=== PATIENT | female | born 1940 | race Caucasian/White ===

== ENCOUNTER 2016-05-24 10:58 | Observation (INO) | payer MEDICARE ==
--- NOTE | ~2016-05-24 | HP ---
History And Physical [place] [id number] [facility]. [address] NAME: JOSELIN ROMANO : 44 STATUS : ADM Margo PAT#: [id number] AGE: 76 ADM/REG DATE : 05/24/16 MR#: [id number] REPORT SERV DATE: 05/25/16 DICTATED BY: KARI MCKEON DATE: 05/25/16 REPORT STATUS : Draft TRANSCRIBED BY: MANUEL DATE: 05/25/16 DATE OF ADMISSION: 05/24/2016 MAIL ROOM CLERK: Bill Rangel M.D. CHIEF COMPLAINT: Elevated blood pressure with headache and previous chest pain event. HISTORY OF PRESENT ILLNESS: A very pleasant, 76-year-old, white female with no known history of CAD, states that over the last several days her blood pressure has run consistently at 170/90. While at [facility] yesterday, her blood pressure was 180/90 with a reported headache and some mild shortness of breath and lightheadedness. She denies any chest pain, pressure, or tightness with the event. She does report some episodes of belching. Denies any nausea or diaphoresis. Of note, she does report in 04/2016 on returning home from a trip to [place] while unpacking their motor home she experienced an episode of chest pain, rated it 10/10, it lasted approximately an hour in duration. She was given aspirin 81 mg, Tums with some improvement in her symptoms. She did not seek any evaluation or treatment for that event, but was referred to Dr. Rangel as a new patient with plans for echo and stress test which will be done this week. The patient denies any personal history of myocardial infarction, stroke, DVT, or pulmonary embolus. The patient denies any recent fever or chills. No palpitations. No syncopal episodes. Denies PND or orthopnea. PAST MEDICAL HISTORY: 1. Dyslipidemia. 2. GERD. 3. 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 4. Positive family history for early CAD. PAST SURGICAL HISTORY: 1. Cholecystectomy. 2. Hysterectomy with incidental appendectomy. SOCIAL HISTORY: She is with three children. 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 Does not have an exercise routine. Denies tobacco, alcohol, or illicit's. FAMILY HISTORY: Mother with a heart attack in her 50s, at 85. Father with a heart attack and pacemaker in his 60s, at 80. REVIEW OF SYSTEMS: A 14-point review of systems performed, significant for HPI including home blood pressures recently of 170/90, otherwise, complete review of systems obtained and negative. ALLERGIES: PENICILLIN, RASH. VALIUM, RESPIRATORY DISTRESS. CODEINE, NAUSEA AND VOMITING. HOME MEDICATIONS: Aspirin 81 mg daily, Tums p.r.n., Prevacid 30 mg daily, multivitamin History And Physical [address] [address] NAME: JOSELIN ROMANO : 44 STATUS : ADM Margo PAT#: [id number] AGE: 76 ADM/REG DATE : 05/24/16 MR#: [id number] REPORT SERV DATE: 05/25/16 DICTATED BY: KARI MCKEON DATE: 05/25/16 REPORT STATUS : Draft TRANSCRIBED BY: MANUEL DATE: 05/25/16 daily, Crestor 10 mg, omega-3 daily, vitamin D3 daily. PHYSICAL EXAMINATION: VITAL SIGNS: Bilateral blood pressures on arrival, right 190/85, left 157/66, this morning 138/65, pulse 53, respirations 20, temperature 98.0, O2 saturation 97% on room air, height 5 feet 3 inches, weight 156 pounds, BMI 28. GENERAL: Cooperative, in no apparent distress. HEENT: Pupils 2 mm, sclera nonicteric. Nares patent. Moist mucous membranes. No xanthelasma. NECK: Trachea midline, no thyromegaly. No JVD. No bruits. LYMPH: No cervical lymphadenopathy. No supraclavicular lymphadenopathy. RESPIRATORY: Unlabored respirations. Breath sounds clear bilaterally to posterior auscultation. No wheezes or rhonchi. CARDIOVASCULAR: Regular rate. No murmur, rub or gallop appreciated. Extremities without edema. Pulses 2+ bilaterally. ABDOMEN: Soft, nontender, nondistended, normal bowel sounds auscultated throughout. No organomegaly. SKIN: Warm, dry extremities. No pallor, or cyanosis. PSYCHIATRIC: Appropriate affect. Alert, oriented x3. LABORATORY DATA: Troponin less than 0.02 twice. Potassium 4.3, BUN 14, creatinine 0.79, glucose 73, magnesium 2.1. WBC 3.8, hemoglobin 13.7, hematocrit 38.9, platelet count 156,000. D-dimer less than 0.27. EKG, sinus bradycardia. MPI 10/2003: No ischemia (at [facility]). ASSESSMENT AND PLAN: 1. History of episode of chest pain, 04/2016. The patient has been observed in the CPOU overnight to rule out myocardial infarction with two sets of troponin negative, EKG stable. We will schedule echo and MPI today with close cardiology and PCP followup. If anything suggestive of ischemia, Cardiology referral will be initiated. Otherwise, the patient will be asked to follow up with her PCP and Dr. Rangel as appropriate. 2. Elevated blood pressure. Monitor blood pressure. Add amlodipine at discharge with instruction to keep diary for followup office visit. 3. Dyslipidemia. Continue statin. JUSTICE/MANUEL Kari Mckeon MSN, INVERTED BLOCK OPERATOR-BC / [id number] CC: Kari Mckeon, MSN, INVERTED BLOCK OPERATOR-BC History And Physical [address] [address] NAME: JOSELIN ROMANO : 44 STATUS : ADM Margo PAT#: [id number] AGE: 76 ADM/REG DATE : 05/24/16 MR#: [id number] REPORT SERV DATE: 05/25/16 DICTATED BY: KARI MCKEON DATE: 05/25/16 REPORT STATUS : Draft TRANSCRIBED BY: MODL DATE: 05/25/16 Popeye Mabry M.D.
[~2016-05-24 10:58] MED LIST: *DENIES
[2016-05-24] MEDS ORDERED: CRESTOR20 MG PO (11:32)
[2016-05-24] MEDS ORDERED: OMEGA-3 OTC PO (11:33)
[2016-05-24] MEDS ORDERED: MULTIVIT/MIN PO (11:33)
[2016-05-24] MEDS ORDERED: HALF81 PO (11:33)
[2016-05-24] MEDS ORDERED: VITAMIN D31000 UNIT PO (11:33)
[2016-05-24] MEDS ORDERED: PREV30 PO (11:34)
[2016-05-24] MEDS ORDERED: TUMS E-X750 M2 PO (11:34)
[2016-05-24 12:17] LABS: BASOPHILS 0.3 %; BASOPHILS ABSOLUTE 0.01 10/3/uL (0.0-0.16); EOSINOPHILS 2.9 %; EOSINOPHILS ABSOLUTE 0.11 10/3/uL (0.0-0.53); ER CBC TAT 0 Hrs 03 Mins; HEMATOCRIT 38.9 % (36.0-48.0); HEMOGLOBIN 13.7 g/dL (12.0-16.0); IMMATURE GRANULOCYTES 0.3 %; IMMATURE GRANULOCYTES ABSOLUTE 0.01 10/3/uL (0.0-0.11); LYMPHOCYTES 21.1 %; MEAN CORPUS HGB CONC 35.2 g/dL (32.0-36.0); MEAN CORPUSCULAR HEMOGLOB 29.8 pg (26.0-34.0); MEAN CORPUSCULAR VOLUME 84.6 fL (80-100); MEAN PLATELET VOLUME 11.6 fL (9.2-13.0); MONOCYTES 8.7 %; MONOCYTES ABSOLUTE 0.33 10/3/uL (0.21-1.20); NEUTROPHILS 66.7 %; NEUTROPHILS ABSOLUTE 2.54 10/3/uL (2.02-8.40); PLATELET COUNT 156 10/3/uL (150-400); RBC DISTRIBUTION WIDTH 13.5 % (12.0-16.0); WHITE BLOOD CELLS 3.8 10/3/uL (4.5-10.5)
[2016-05-24 12:18] LABS: MANUAL DIFF NO %
[2016-05-24 12:25] LABS: PARTIAL THROMBO TIME 23.4 SEC (22.5-37.2); PROTIME (NOT ORD) 13.5 SEC (12.0-14.5)
[2016-05-24 12:36] LABS: BUN (BLOOD UREA NITROGEN) 14 MG/DL (6-23); CALCIUM, SERUM 9.2 MG/DL (8.5-10.4); CHEST PAIN PROFILE TAT 0 Hrs 22 Mins; CHLORIDE, SERUM 107 MMOL/L (96-112); CO2 (CARBON DIOXIDE) 30 MMOL/L (24-34); CREATININE 0.79 MG/DL (0.55-1.02); GFR AFRICAN AMERICAN 85 ML/MIN (>=60); GFR NON AFRICAN AMERICAN 74 ML/MIN (>=60); GLUCOSE, SERUM 73 MG/DL (60-99); POTASSIUM, SERUM 4.3 MMOL/L (3.5-5.3); SODIUM, SERUM 144 MMOL/L (135-148); TROPONIN I <0.02 NG/ML (<0.05)
[2016-05-25] MEDS ORDERED: NORV25 PO (17:54)
== END 2016-05-25 18:31 | disposition home or self-care (01) ==
LOC: ER 10:58 → CDU1 12:58
PROVIDERS: Hospitalist
DX: R07.2 Precordial pain (principal); R03.0 Elevated blood-pressure reading, without diagnosis of hypertension; E78.5 Hyperlipidemia, unspecified; K91.5 Postcholecystectomy syndrome; K21.9 Gastro-esophageal reflux disease without esophagitis; E55.9 Vitamin D deficiency, unspecified; Z90.49 Acquired absence of other specified parts of digestive tract; Z79.82 Long term (current) use of aspirin; Z79.899 Other long term (current) drug therapy; Z90.710 Acquired absence of both cervix and uterus; Z88.0 Allergy status to penicillin; Z88.5 Allergy status to narcotic agent
CPT/HCPCS: 71010; 78452; 80048; 82962; 83735; 84484; 85025; 85379; 85610; 85730; 93005; 93017; 93306; 96374; 99285; A9270-GY; A9502; G0378; J0360

== ENCOUNTER 2016-05-27 14:21 | Observation (INO) | payer MEDICARE ==
--- NOTE | ~2016-05-27 | HP ---
History And Physical [place] [id number] [facility] [place]. [address] NAME: JOSELIN ROMANO : 44 STATUS : ADM Margo PAT#: [id number] AGE: 76 ADM/REG DATE : 05/27/16 MR#: [id number] REPORT SERV DATE: 05/27/16 DICTATED BY: DATE: REPORT STATUS : Draft TRANSCRIBED BY: MODL DATE: 05/27/16 DATE OF ADMISSION: 05/27/2016 This is a very pleasant 76-year-old white female with no known history of coronary artery disease. She was at her PCP's office for right upper quadrant abdominal pain today. While she was there awaiting to see the PCP, she went to the restroom and developed some lightheadedness, nausea, became short of breath, and felt heart flutter. She denies a syncopal episode. She did not use the restroom at that time. She just sat down to feel better. Thirty minutes after that event, she was being assessed by her PCP and while lying flat, she had developed some flushing to her face. On sitting up afterwards, she developed some sharp chest pain on her left side radiating to her left arm, accompanied with shortness of breath. She was very flushed at that time, felt a lot of palpitations. During that event, she also experienced a headache and increased blood pressure. The reports the blood pressure of 184 over an unknown diastolic blood pressure. The patient reports that she has had palpitations for years. The sharp pain that the patient experienced lasted a few seconds and has not reoccurred since the event in the office. She is currently chest- pain-free. Denies any complaints. She was here 2 days ago on 05/25/2016, with a low-risk stress test and a TTE that showed an EF of 55% to 60%. The patient also denies any recent fevers, chills, syncopal episodes, PND, or orthopnea. PAST MEDICAL HISTORY: Includes 1. Dyslipidemia. 2. GERD. 3. 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 4. Positive family history for early coronary artery disease. 5. Palpitations. PAST SURGICAL HISTORY: 1. Cholecystectomy. 2. Hysterectomy with incidental appendectomy. SOCIAL HISTORY: She is , with three children. 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 She denies any tobacco use, alcohol, or illicits. She does not have an exercise routine. FAMILY HISTORY: Mother with a heart attack in her 50s, at the age of 85. Father with a heart attack and a pacemaker in his 60s, at 80. REVIEW OF SYSTEMS: A 14-point review of systems was performed, significant for HPI including home blood pressure of 184 over unknown diastolic blood pressure. Otherwise complete review of systems obtained and negative. ALLERGIES: PENICILLIN CAUSING A RASH. VALIUM CAUSING RESPIRATORY DISTRESS. CODEINE CAUSING NAUSEA AND VOMITING. History And Physical [address] [address] NAME: JOSELIN ROMANO : 44 STATUS : ADM Margo PAT#: [id number] AGE: 76 ADM/REG DATE : 05/27/16 MR#: [id number] REPORT SERV DATE: 05/27/16 DICTATED BY: DATE: REPORT STATUS : Draft TRANSCRIBED BY: MODL DATE: 05/27/16 HOME MEDICATIONS: Include 1. Amlodipine 2.5 p.o. daily. 2. Aspirin 81 p.o. at bedtime. 3. Calcium carbonate 1500 tab p.o. daily. 4. Vitamin D3 of 2000 units p.o. every morning. 5. Prevacid 30 mg p.o. daily. 6. Multivitamin 1 tab p.o. daily. 7. Crestor 20 p.o. at bedtime. 8. [place]-3 [id number] 1 capsule p.o. daily. PHYSICAL EXAMINATION: VITAL SIGNS: Blood pressure 141/54, pulse 88, respirations 18, temperature 97.9, O2 saturation 98%, on room air, height 5 feet 3 inches, weight 155 pounds, BMI 27.5. GENERAL: Cooperative, in no apparent distress. HEENT: Sclerae nonicteric. Nares patent. Pupils 2 mm. Moist mucous membranes. No xanthelasma. NECK: Trachea is midline. No thyromegaly. No JVD. No bruits. LYMPH: No cervical lymphadenopathy. No supraclavicular lymphadenopathy. RESPIRATIONS: Unlabored respirations. Breath sounds clear bilaterally to posterior auscultation. No wheezes or rhonchi or crackles. CARDIOVASCULAR: Regular rate. No murmur, rub, or gallop appreciated. EXTREMITIES: Without edema. Pulses 2+ bilaterally. ABDOMEN: Soft, nontender, nondistended, normal bowel sounds auscultated throughout. No organomegaly. SKIN: Warm, dry extremities. No pallor, or cyanosis. PSYCHIATRIC: Appropriate affect. Alert and oriented x3. LABORATORY DATA: Troponin less than 0.02. Sodium 144, potassium 3.8, BUN 12, creatinine 0.76, GFR 90, glucose 88, and magnesium 2.0. White blood cells 4.2, hemoglobin 13.7, hematocrit 38.8, and platelets 177. INR 1.0. TTE dated 05/25/2016, showed a normal left ventricular systolic function with a calculated ejection fraction of 55% to 60%. Mild mitral regurgitation. Nuclear myocardial imaging dated 05/25/2016, showed Srikanth stage II, achieved 96% MPHR at 7 METS. No chest pain, but left-sided neck pain during exercise. No EKG changes of ischemia. Imaging demonstrated no ischemia as above. Post exercise left ventricular ejection fraction greater than 60%. Overall, low-risk stress test. In the future, consider PET stress due to large breast attenuation artifact. ASSESSMENT AND PLAN: 1. Chest pain. Currently the patient denies chest pain. Troponin is negative at 0.02. Stress test on 05/25/2016, showed low-risk no ischemia. TTE on 05/25/2016, showed an EF of 55% to 60% with mild MR. The patient's symptoms and history were discussed with Dr. Duncan. Plan for a test plus/minus PCI tomorrow due to recurrent chest pain with the negative stress test. We may do a tentative evaluation of coronary anatomy if best. The patient will follow up with Dr. Rangel and Dr. Son post discharge. The History And Physical [address] [address] NAME: JOSELIN ROMANO : 44 STATUS : ADM Margo PAT#: [id number] AGE: 76 ADM/REG DATE : 05/27/16 MR#: [id number] REPORT SERV DATE: 05/27/16 DICTATED BY: DATE: REPORT STATUS : Draft TRANSCRIBED BY: MODL DATE: 05/27/16 patient will be observed in the CPOU overnight. 2. Palpitations. We will continue to monitor the patient on the telemetry for any arrhythmia. The patient is currently in sinus rhythm. Recommend a Holter monitor outpatient per PCP. 3. Hypertension. The patient is currently stable at 141/54. Home medications addressed. We will also start Coreg 3.125 p.o. twice a day. 4. Hyperlipidemia. Continue statin. 5. Headache, currently resolved. EKS/MODL Toi Ayala APN / [id number] CC: Kari Dyer, MSN, LEAD NETWORK ARCHITECT-BC Sunny Son M.D. Bill Rangel M.D.
[2016-05-27 13:22] LABS: BASOPHILS 0.7 %; BASOPHILS ABSOLUTE 0.03 10/3/uL (0.0-0.16); EOSINOPHILS 2.6 %; EOSINOPHILS ABSOLUTE 0.11 10/3/uL (0.0-0.53); ER CBC TAT 0 Hrs 08 Mins; HEMATOCRIT 38.8 % (36.0-48.0); HEMOGLOBIN 13.7 g/dL (12.0-16.0); IMMATURE GRANULOCYTES 0.2 %; IMMATURE GRANULOCYTES ABSOLUTE 0.01 10/3/uL (0.0-0.11); LYMPHOCYTES 27.1 %; LYMPHOCYTES ABSOLUTE 1.13 10/3/uL (0.67-4.30); MEAN CORPUS HGB CONC 35.3 g/dL (32.0-36.0); MEAN CORPUSCULAR HEMOGLOB 29.8 pg (26.0-34.0); MEAN CORPUSCULAR VOLUME 84.3 fL (80-100); MEAN PLATELET VOLUME 11.5 fL (9.2-13.0); MONOCYTES 7.4 %; MONOCYTES ABSOLUTE 0.31 10/3/uL (0.21-1.20); NEUTROPHILS ABSOLUTE 2.58 10/3/uL (2.02-8.40); PLATELET COUNT 177 10/3/uL (150-400); RBC DISTRIBUTION WIDTH 13.6 % (12.0-16.0); WHITE BLOOD CELLS 4.2 10/3/uL (4.5-10.5)
[2016-05-27 13:23] LABS: MANUAL DIFF NO %
[2016-05-27 13:31] LABS: PARTIAL THROMBO TIME 26.3 SEC (22.5-37.2); PROTIME (NOT ORD) 13.4 SEC (12.0-14.5)
[2016-05-27 13:39] LABS: BUN (BLOOD UREA NITROGEN) 12 MG/DL (6-23); CALCIUM, SERUM 9.8 MG/DL (8.5-10.4); CHEST PAIN PROFILE TAT 0 Hrs 25 Mins; CHLORIDE, SERUM 107 MMOL/L (96-112); CREATININE 0.76 MG/DL (0.55-1.02); GFR AFRICAN AMERICAN 90 ML/MIN (>=60); GFR NON AFRICAN AMERICAN 77 ML/MIN (>=60); POTASSIUM, SERUM 3.8 MMOL/L (3.5-5.3); SODIUM, SERUM 144 MMOL/L (135-148); TROPONIN I <0.02 NG/ML (<0.05)
[2016-05-27 13:40] LABS: CO2 (CARBON DIOXIDE) 25 MMOL/L (24-34); GLUCOSE, SERUM 88 MG/DL (60-99)
[~2016-05-27 14:21] MED LIST changes: +CRESTOR20 MG PO; +HALF81 PO; +MULTIVIT/MIN PO; +NORV25 PO; +OMEGA-3 OTC PO; +PREV30 PO; +TUMS E-X750 M2 PO; +VITAMIN D31000 UNIT PO
[2016-05-27 20:22] LABS: FREE T4 0.99 NG/DL (0.76-1.46); TROPONIN I <0.02 NG/ML (<0.05)
[2016-05-28 05:19] LABS: BASOPHILS 0.4 %; BASOPHILS ABSOLUTE 0.02 10/3/uL (0.0-0.16); EOSINOPHILS 3.8 %; EOSINOPHILS ABSOLUTE 0.17 10/3/uL (0.0-0.53); HEMATOCRIT 39.8 % (36.0-48.0); HEMOGLOBIN 13.9 g/dL (12.0-16.0); IMMATURE GRANULOCYTES 0.2 %; IMMATURE GRANULOCYTES ABSOLUTE 0.01 10/3/uL (0.0-0.11); LYMPHOCYTES 24.4 %; MEAN CORPUS HGB CONC 34.9 g/dL (32.0-36.0); MEAN CORPUSCULAR VOLUME 85.8 fL (80-100); MEAN PLATELET VOLUME 11.4 fL (9.2-13.0); MONOCYTES 7.8 %; MONOCYTES ABSOLUTE 0.35 10/3/uL (0.21-1.20); NEUTROPHILS 63.4 %; NEUTROPHILS ABSOLUTE 2.86 10/3/uL (2.02-8.40); PLATELET COUNT 175 10/3/uL (150-400); RBC DISTRIBUTION WIDTH 13.5 % (12.0-16.0); RED CELL COUNT 4.64 10/6/uL (4.0-5.6); WHITE BLOOD CELLS 4.5 10/3/uL (4.5-10.5)
[2016-05-28 05:20] LABS: MANUAL DIFF NO %
[2016-05-28 05:28] LABS: BUN (BLOOD UREA NITROGEN) 13 MG/DL (6-23); CALCIUM, SERUM 8.9 MG/DL (8.5-10.4); CHLORIDE, SERUM 105 MMOL/L (96-112); CO2 (CARBON DIOXIDE) 25 MMOL/L (24-34); CREATININE 0.76 MG/DL (0.55-1.02); GFR AFRICAN AMERICAN 90 ML/MIN (>=60); GFR NON AFRICAN AMERICAN 77 ML/MIN (>=60); GLUCOSE, SERUM 85 MG/DL (60-99); HDL CHOLESTEROL 37 MG/DL (> 49); POTASSIUM, SERUM 3.6 MMOL/L (3.5-5.3); SODIUM, SERUM 142 MMOL/L (135-148)
[2016-05-28 05:30] LABS: CHOL/HDL RATIO(NOT ORDER) 3.5 (0-5); CHOLESTEROL 130 MG/DL (< 200); LDL CHOLESTEROL 45 MG/DL (< 130); NON-HDL CHOLESTEROL 93 MG/DL (< 160); TRIGLYCERIDE 242 MG/DL (< 150)
[2016-05-28] MEDS ORDERED: COREG3 PO (16:40)
== END 2016-05-28 18:08 | disposition home or self-care (01) ==
LOC: ER 14:21 → CDU1 15:04
PROVIDERS: Clinical Nurse Specialist; Internal Medicine; Nurse Practitioner
DX: I25.110 Atherosclerotic heart disease of native coronary artery with unstable angina pectoris (principal); K91.5 Postcholecystectomy syndrome; I10 Essential (primary) hypertension; E55.9 Vitamin D deficiency, unspecified; E78.5 Hyperlipidemia, unspecified; K21.9 Gastro-esophageal reflux disease without esophagitis; Z90.49 Acquired absence of other specified parts of digestive tract; Z88.0 Allergy status to penicillin; Z82.49 Family history of ischemic heart disease and other diseases of the circulatory system; Z79.52 Long term (current) use of systemic steroids; Z79.82 Long term (current) use of aspirin; Z79.899 Other long term (current) drug therapy; Z90.710 Acquired absence of both cervix and uterus; Z88.5 Allergy status to narcotic agent; Z88.8 Allergy status to other drugs, medicaments and biological substances; Z98.890 Other specified postprocedural states
CPT/HCPCS: 71010; 76700; 80048; 80061; 83735; 84439; 84443; 84484; 85025; 85610; 85730; 93005; 93458; 99152; 99285; A9270-GY; C1769; C1894; G0378; J2250; J3010; Q9967